=== PATIENT | male | born 1945 | race Caucasian/White ===

== ENCOUNTER 2021-10-11 10:03 | Emergency (ER) | payer MEDICARE ==
[2021-10-11] MEDS ORDERED: CYCLOBENZAPRINE10 MG PO (12:01)
[2021-10-11] MEDS ORDERED: PREDNISONE 20MG20 MG PO (12:01)
== END 2021-10-11 12:19 | disposition home or self-care (01) ==
LOC: FER 10:03
DX: M54.16 Radiculopathy, lumbar region (principal); I10 Essential (primary) hypertension; E11.9 Type 2 diabetes mellitus without complications; I25.10 Atherosclerotic heart disease of native coronary artery without angina pectoris
CPT/HCPCS: 99283; J2930

== ENCOUNTER 2022-03-05 12:07 | Emergency (ER) | payer MEDICARE ==
[~2022-03-05 12:07] MED LIST: CYCLOBENZAPRINE10 MG PO; PREDNISONE 20MG20 MG PO
[2022-03-05 13:06] LABS: BASOPHIL 0.5 % (0-2); EOSINOPHIL 1.3 % (0-7); HCT 44.7 % (42.0-52.0); HGB 14.3 g/dl (13.2-18.0); LYMPHOCYTE 15.1 % (15-48); MCH 30.7 pg (25.0-31.0); MCV 95.9 fL (78.0-100.0); MONOCYTE 8.1 % (0-12); MPV 8.7 fL (6.0-9.5); NEUTROPHIL 74.2 % (41-80); NRBC 0; PLT 147 K/uL (150-400); RBC 4.66 M/uL (4.70-6.00); RDW 13.7 % (11.5-14.0)
[2022-03-05 13:28] LABS: BUN/CREAT RATIO (CALC) 34.3 RATIO; CREATININE 0.7 mg/dL (0.67-1.17); POTASSIUM 4.4 mmol/L (3.5-5.1)
== END 2022-03-05 15:29 | disposition home or self-care (01) ==
LOC: FER 12:07
PROVIDERS: Nurse Practitioner Family
DX: R04.0 Epistaxis (principal); E11.9 Type 2 diabetes mellitus without complications; I10 Essential (primary) hypertension; Z79.01 Long term (current) use of anticoagulants; Z79.82 Long term (current) use of aspirin
CPT/HCPCS: 36415; 80048; 85025; 99283